=== PATIENT | male | born 1980 | race African-American/Black ===

== ENCOUNTER 2022-09-03 08:32 | Emergency (ER) | payer OTHER ==
[~2022-09-03] VITALS: Ht 180.3 cm; Wt 104.5 kg
[2022-09-03 08:34] VITALS: BP 137/98
[2022-09-03] MEDS ORDERED: AMLO-257 PO (08:42)
[2022-09-03] MEDS ORDERED: HYDR-4870 PO (08:42)
[2022-09-03] MEDS ORDERED: IBUP-1492 PO (09:00)
[2022-09-03] MEDS ORDERED: CEPH-558 PO (09:00)
== END 2022-09-03 09:13 | disposition home or self-care (01) ==
LOC: EMS 08:35
DX: L03.031 Cellulitis of right toe (principal); I10 Essential (primary) hypertension; F17.210 Nicotine dependence, cigarettes, uncomplicated; F12.90 Cannabis use, unspecified, uncomplicated
CPT/HCPCS: 99283; Z7502

== ENCOUNTER 2023-07-14 23:09 | Emergency (ER) | payer OTHER ==
[~2023-07-14] VITALS: Ht 180.3 cm; Wt 100.0 kg
[~2023-07-14 23:09] MED LIST: AMLO-257 PO; CEPH-558 PO; HYDR25TA2 PO; IBUP-1492 PO
[2023-07-14 23:12] VITALS: BP 198/115; PULSE 86; RESP 16; TEMP 97.9
[2023-07-15] MEDS ORDERED: MOXI3DRO25 OU (00:02)
== END 2023-07-15 00:34 | disposition home or self-care (01) ==
LOC: EMS 23:09
DX: H10.9 Unspecified conjunctivitis (principal); I10 Essential (primary) hypertension; F12.90 Cannabis use, unspecified, uncomplicated; Z87.891 Personal history of nicotine dependence
CPT/HCPCS: 99283; Z7502

== ENCOUNTER 2023-12-01 22:44 | Emergency (ER) | payer OTHER ==
[~2023-12-01] VITALS: Ht 180.3 cm; Wt 122.7 kg
[~2023-12-01 22:44] MED LIST changes: +MOXI3DRO25 OU
[2023-12-01 23:11] VITALS: TEMP 98.1
[2023-12-01] MEDS ORDERED: METO25 PO (23:39)
[2023-12-02 00:04] VITALS: BP 164/110; PULSE 86; RESP 16
[2023-12-02] MEDS ORDERED: METO25 PO (00:38)
[2023-12-02] MEDS ORDERED: HYDR25TA2 PO (00:38)
[2023-12-02] MEDS ORDERED: AMLO-258 PO (00:38)
[2023-12-02] MEDS: ALBUTEROL SULFATE HFA 90 MCG/PUFF 8 GM INHALER IH ONE (00:41)
[2023-12-02] MEDS ORDERED: METO25XL PO (00:51)
== END 2023-12-02 00:58 | disposition home or self-care (01) ==
LOC: EMS 22:44
DX: I10 Essential (primary) hypertension (principal); F12.90 Cannabis use, unspecified, uncomplicated; Z87.891 Personal history of nicotine dependence; Z76.0 Encounter for issue of repeat prescription
CPT/HCPCS: 99283; 94640; 93005; J3535